=== PATIENT | male | born 1980 | race Caucasian/White ===

== ENCOUNTER → 2016-10-25 | Day surgery (SDC) | payer OTHER ==
--- NOTE | 2016-10-22 12:13 | History & Physical Pre-Op ---
General Information and HPI History of Present Illness: Davy is a 36-year-old male with a long-standing and worsening complaint of painful plantar fasciitis left and right feet. The patient has undergone an extended course of conservative care, including shoe gear and activity modification, rest, immobilization and courses of NSAIDs. None of this is yielded him any significant relief. The patient presents today for preoperative surgical consultation. Allergies/Medications Allergies: Coded Allergies: NO KNOWN ALLERGIES (12/30/12) Home Med list Aspirin (Ecotrin*) 81 MG TABLET.DR 1 TAB PO DAILY CARDIAC STENTS (Reported) Atorvastatin Calcium (Lipitor) 40 MG TABLET 1 TAB PO DAILY CHOLESTEROL ( Reported) Carvedilol (Coreg) 25 MG TABLET 1 TAB PO BID CAD (Reported) Escitalopram Oxalate (Lexapro) 10 MG TABLET 1 TAB PO DAILY DEPRESSION ( Reported) Losartan Potassium 100 MG TABLET 1 TAB PO DAILY HTN (Reported) Tadalafil (Cialis) 20 MG TABLET 1 TAB PO DAILY ERECTILE DYSFUNCTION (Reported ) Past History Medical History Neurological: CVA Cardiovascular: myocardial infarction Influenza Vaccine: 01/09/13 Tetanus Vaccine: 06/21/13 Surgical History Pertinent Surgical History: 3 STENTS Review of Systems Review of Systems: Unremarkable except for that noted in history present illness Exam & Diagnostic Data Physical Exam: Lungs clear bilaterally. Heart sounds rate and rhythm regular. Lower extremity physical exam demonstrates intact pedal pulses bilaterally. Pulses dorsalis pedis and posterior tibial arteries are palpable bilaterally. Patient without any sensory motor deficits. Deep tendon reflexes grossly intact. Patient noted to have significant pain with palpation to the plantar medial aspect of the left and right heels. Negative Tinel sign noted with percussion of the posterior tibial nerve. Ankle range of motion noted to be diminished, especially in dorsiflexion. Assessment/Plan Assessment/Plan: Gastrocnemius equinus left and right with plantar fasciitis left and right. A lengthy discussion reviewing both surgical and conservative options was held with the patient at bedside and the patient elects to go forward with surgery despite the risks. As Ranked By This Provider Problem List: 1. Plantar fascial fibromatosis Attending MD Review Statement Attending Statement Attending MD Statement: examined this patient
[~2016-10-25] VITALS: Ht 177.8 cm; Wt 113.4 kg
[~2016-10-25] MED LIST: ASPIRIN EC81 M1 PO; CIALIS20 M1 PO; COREG25 M1 PO; LEXAPRO10 M1 PO; LIPITOR40 M1 PO; LOSARTAN POTAS100 M1 PO
--- NOTE | 2016-10-25 14:04 | Operative Report ---
Operative/Inv Procedure Report Surgery Date: 10/25/16 Name of Procedure: 1 gastrocnemius recession right 2 gastrocnemius recession left 3 plantar fasciotomy right 4 plantar fasciectomy right 5 plantar fasciotomy left 6 plantar fasciectomy left 7 intraoperative administration of ankle block anesthesia Pre-Operative Diagnosis: 1 gastrocnemius equinus right 2 gastrocnemius equinus left 3 plantar fasciitis right 4 plantar fasciitis left Post-Operative Diagnosis: Same Estimated Blood Loss: scant Surgeon/Taximeter Repairer: MUNA CLOUD DPM Anesthesia: moderate sedation, block Operative/Procedure Note Note: After obtaining informed consent the patient was brought to the operating room and placed on the operating table in the supine position. The patient was then securely fastened to the operating table utilizing safety belt. After administration of IV sedation, 10 mL of 0.5% Marcaine plain was obtained about the patient's left and right ankles. 2 well-padded calf tourniquets were placed about the patient's left and right upper cast. 2 g of Ancef were delivered intravenously times one dose. The left and right lower extremities within scrubbed prepped and draped in usual aseptic manner. Left lower extremity was elevated to examine to limb, which point the calf tourniquet was inflated 250 mmHg. Attention was directed to the distal leg, where a linear incision was made 2 fingerbreadths distal to the medial have a gastrocnemius muscle. It was deepened subtenons tissues down to the medial margin of the gastroc fascia. An interval was developed between the peritenon and the fascia. A gastrocnemius recession was then performed. The deep tissues reapproximated 4-0 Vicryl skin edges reprepped with 4-0 nylon. Attention was then directed to the distal foot where portals well-developed with a 62 K wire and the tissue was ablated with the [place] micro-ablator. The medial slip the plantar fascia was then released from its origin at the medial tubercle calcaneal tuberosity. Skin incision closed with 4-0 nylon and then dressed with [place] dressings and Coban. The tourniquet on the left lower extremity was then deflated. The right lower extremity was then elevated, at which point the calf tourniquet was inflated 250 mmHg. Attention was directed to the distal right leg, where a linear incision was made 2 finger best distal to the medial have a gastrocnemius muscle. It discitis and deepened down to the medial margin of the gastroc fascia. An interval was developed between the gastroc fascia and the peritenon. Gastrocnemius recession was was then performed. Deep tissues reapproximated 4-0 Vicryl skin edges reports a 4-0 nylon. Attention was then directed to the plantar medial right foot, where portals well-developed 62 K wire tissue was then ablated with the Parkinsor micro-ablator. The medial margin of the medial slip of the plantar fascia which was released from its origin on the medial tubercle calcaneal tuberosity. The skin edges reapproximated 4-0 nylon. The incisions were then dressed with [place] dressings and Coban. The patient was noted to tolerate both procedure and anesthesia well and the patient was transported from the operating room to recovery by sent stable best assess intact all digits bilateral feet.
== END ==
LOC: STS 03:00
DX: M21.6X1 Other acquired deformities of right foot (principal); M21.6X2 Other acquired deformities of left foot; M72.2 Plantar fascial fibromatosis; I25.2 Old myocardial infarction; Z79.82 Long term (current) use of aspirin
CPT/HCPCS: J0131; J0690; J1885; J2001; J2250